=== PATIENT | female | born 1995 | race Hispanic/Latino ===

== ENCOUNTER 2016-12-27 17:44 | Emergency (ER) | payer MEDICAID ==
[2016-12-27 17:45] VITALS: BMI 27.3
[2016-12-27 17:53] VITALS: BP 123/60; PULSE 88; RESP 18; TEMP 98.7; O2SAT 99
--- NOTE | 2016-12-27 18:17 | ED PDOC ---
HPI: General Adult Time Seen by Provider: 12/27/16 18:02 Chief Complaint (Nursing): Flu-like Symptoms Chief Complaint (Provider): sore throat, fever History Per: Patient History/Exam Limitations: no limitations Have you had recent travel within the past 21 days to any of the following countries: [place], [place], [place] or [place]?: No Current Symptoms Are (Timing): Still Present Additional Complaint(s): Patient has had subjective fever and sore throat since yesterday with no associated cough. She also complains of body aches and decreased appetite. No associated vomiting. No recent travel or known sick contacts. Patient is tolerating liquids and solids but has pain when swallowing. PMD: [facility] Past Medical History Reviewed: Historical Data, Nursing Documentation, Vital Signs Vital Signs: Last Vital Signs Temp 98.7 F 12/27/16 17:51 Pulse 88 12/27/16 17:51 Resp 18 12/27/16 17:51 BP 123/60 12/27/16 17:51 Pulse Ox 99 12/27/16 19:05 - Medical History PMH: No Chronic Diseases - Surgical History Surgical History: No Surg Hx - Family History Family History: States: No Known Family Hx - Living Arrangements Living Arrangements: With Family - Social History Current smoker - smoking cessation education provided: No Alcohol: Occasional Drugs: Denies - Home Medications Home Medications: Ambulatory Orders Medication Instructions Recorded Ibuprofen [Motrin Tab] 600 mg PO 0500,1100,1700,2300 #30 07/28/16 tab guaiFENesin/Dextromethorphan 1 tab PO HS #14 tab 07/28/16 [Mucinex-DM 600-30 mg] levoFLOXacin [Levaquin] 500 mg PO DAILY #8 tab 07/28/16 Azithromycin [Zithromax] 250 mg PO DAILY #6 tab 12/27/16 - Allergies Allergies/Adverse Reactions: Allergies Allergy/AdvReac Type Severity Reaction Status Date / Time amoxicillin Allergy RASH Verified 07/26/16 18:54 Review of Systems ROS Statement: Except As Marked, All Systems Reviewed And Found Negative Constitutional: Positive for: Fever (tactile), Other (body aches and loss of appetite.) ENT: Positive for: Throat Pain Cardiovascular: Negative for: Chest Pain Respiratory: Negative for: Cough, Shortness of Breath Gastrointestinal: Negative for: Nausea, Vomiting, Diarrhea Genitourinary Female: Negative for: Dysuria Neurological: Positive for: Headache. Negative for: Dizziness Physical Exam - Reviewed Nursing Documentation Reviewed: Yes Vital Signs Reviewed: Yes - Physical Exam Appears: Positive for: Well, Non-toxic, No Acute Distress Head Exam: Positive for: ATRAUMATIC, NORMAL INSPECTION, NORMOCEPHALIC Skin: Positive for: Normal Color. Negative for: Rash Eye Exam: Positive for: Normal appearance ENT: Positive for: Pharyngeal Erythema, Tonsillar Exudate (Bilateral tonsillar erythema with scant patchy exudates bilaterally), Tonsillar Swelling (minimal). Negative for: Normal ENT Inspection, Nasal Congestion Neck: Positive for: Normal Cardiovascular/Chest: Positive for: Regular Rate, Rhythm. Negative for: Murmur Respiratory: Positive for: Normal Breath Sounds. Negative for: Respiratory Distress Gastrointestinal/Abdominal: Positive for: Soft. Negative for: Tenderness Lymphatic: Positive for: Adenopathy (Bilateral anterior cervical lymphadenopathy ) Neurologic/Psych: Positive for: Alert, Oriented - Laboratory Results Urine POC: Negative - ECG O2 Sat by Pulse Oximetry: 99 (RA) Pulse Ox Interpretation: Normal Medical Decision Making Medical Decision Making: Time: 12:51 Initial Impression: Pharyngitis Initial Plan: --urine --throat culture STAT --Zithromax 250 mg PO --Motrin OTC as needed Time: 18:42 Upon provider reevaluation patient is medically stable, and requires no further treatment in the ED at this time. Patient will be discharged home with Rx for Zithromax 250 mg and advised to take OTC Motrin as needed for pain relief. Counseling was provided and all questions were answered regarding diagnosis and need for follow up with [facility]. There is agreement to discharge plan. Return if symptoms persist or worsen. Clinical Impression: Pharyngitis Scribe Attestation: Documented by Tessa Orourke, acting as a scribe for Audrey Grullon PA-C. Provider Scribe Attestation: All medical record entries made by the Scribe were at my direction and personally dictated by me. I have reviewed the chart and agree that the record accurately reflects my personal performance of the history, physical exam, medical decision making, and the department course for this patient. I have also personally directed, reviewed, and agree with the discharge instructions and disposition. Disposition - Clinical Impression Clinical Impression: Pharyngitis - Patient ED Disposition Is Patient to be Admitted: No Counseled Patient/Family Regarding: Studies Performed, Diagnosis, Need For Followup, Rx Given - Disposition Referrals: WILLIAM BATES [Provider Group] Disposition: Routine/Home Disposition Time: 18:42 Condition: STABLE Additional Instructions: Take [id number] Motrin for pain relief as needed. Drink plenty of fluids. Take antibiotics as directed. Follow up with primary doctor in 2-3 days or return any time if acutely worse. Prescriptions: Azithromycin [Zithromax] 250 mg PO DAILY #6 tab Instructions: Pharyngitis (ED)
== END 2016-12-27 19:10 | disposition home or self-care (01) ==
LOC: H.ER 17:44
DX: J02.9 Acute pharyngitis, unspecified (principal)